=== PATIENT | male | born 1955 | race Caucasian/White ===

== ENCOUNTER 2016-12-20 19:35 | Emergency (ER) | payer BC ==
[2016-12-20 20:06] VITALS: BP 126/75
--- NOTE | 2016-12-20 20:39 | UC ---
FLU HPI - HPI Summary HPI Summary: complaint of nasal congestion and cough that started yesterday low grade fever sore throat for several hours yesterday feels body aches pain in joints and muscles exhausted taking tylenol and aspirin with some relief - History of Current Complaint Chief Complaint: UCRespiratory Stated Complaint: FLU LIKE SYMPTOMS Time Seen by Provider: 12/20/16 20:33 Hx Obtained From: Patient - Allergy/Home Medications Allergies/Adverse Reactions: Allergies Allergy/AdvReac Type Severity Reaction Status Date / Time Clarithromycin [From Biaxin] Allergy Severe vomiting Verified 12/20/16 19:59 and dizziness Sulfa Drugs Allergy Severe Vomiting Verified 12/20/16 19:59 and dizziness Sulfamethoxazole Allergy Severe Vomiting, Verified 12/20/16 19:59 w/Trimethoprim dizziness [From Septra] Home Medications: Home Medications Aspirin EC Low Dose* [Ecotrin EC Low Dose 81 MG*] 1 tab DAILY 12/20/16 [History Confirmed 12/20/16] Hydrochlorothiazide TAB* [Hydrodiuril TAB*] 12.5 mg DAILY 12/20/16 [History Confirmed 12/20/16] Metoprolol Tartrate TAB* [Lopressor TAB*] 1 tab BID 12/20/16 [History Confirmed 12/20/16] PMH/Surg Hx/FS Hx/Imm Hx Previously Healthy: Yes Cardiovascular History Of: Reports: Cardiac Disorders - heart murmur, Hypertension Respiratory History Of: Reports: Asthma - Surgical History Surgical History: Yes Surgery Procedure, Year, and Place: RIGHT rotator cuff Sep 2016 - Family History Known Family History: Negative: Cardiac Disease, Hypertension, Diabetes - Social History Occupation: Employed Full-time Lives: With Family Alcohol Use: Daily Substance Use Type: None Smoking Status (MU): Never Smoked Tobacco - Immunization History Most Recent Influenza Vaccination: 2016 Most Recent Tetanus Shot: UTD Review of Systems Constitutional: Fever, Fatigue Skin: Negative Eyes: Negative ENT: Nasal Discharge Respiratory: Cough Cardiovascular: Negative Gastrointestinal: Negative Genitourinary: Negative Motor: Negative Neurovascular: Negative Musculoskeletal: Myalgia Neurological: Negative Psychological: Negative All Other Systems Reviewed And Are Negative: Yes Physical Exam Triage Information Reviewed: Yes Appearance: No Pain Distress, Well-Nourished Vital Signs: Initial Vital Signs Temp 98.4 F 12/20/16 20:02 Pulse 66 12/20/16 20:02 Resp 18 12/20/16 20:02 BP 126/75 12/20/16 20:02 Pulse Ox 98 12/20/16 20:02 Vital Signs Reviewed: Yes Eyes: Positive: Conjunctiva Clear ENT: Positive: Pharyngeal erythema, Nasal congestion, Nasal drainage, TMs normal. Negative: Tonsillar swelling, Tonsillar exudate Neck: Positive: No Lymphadenopathy Respiratory: Positive: Lungs clear, Normal breath sounds, No respiratory distress Cardiovascular: Positive: RRR, No Murmur, Pulses Normal Abdomen Description: Positive: Nontender, Soft Bowel Sounds: Positive: Present Neurological: Positive: Alert Psychological Exam: Normal Skin Exam: Normal Flu Course/Dx - Differential Dx/Diagnosis Differential Diagnosis/HQI/PQRI: Influenza, Upper Respiratory Infection Provider Diagnoses: influenza like illness Discharge - Discharge Plan Condition: Stable Disposition: HOME Patient Education Materials: Influenza (ED) Referrals: Elly CAMP,Luisito Lizarraga [Medical Doctor] - Additional Instructions: You have an influenza like illness Increase fluids and rest Take acetaminophen or ibuprofen for fever or pain Please review your discharge instructions. If your symptoms do not improve please call your primary care provider or return to urgent care
== END 2016-12-20 21:04 | disposition home or self-care (01) ==
LOC: UCCORT 19:35
DX: J11.1 Influenza due to unidentified influenza virus with other respiratory manifestations (principal); Z88.1 Allergy status to other antibiotic agents; Z88.2 Allergy status to sulfonamides; I10 Essential (primary) hypertension; Z79.82 Long term (current) use of aspirin
CPT/HCPCS: 87502; 99201; G0463

== ENCOUNTER 2017-12-04 07:07 | Emergency (ER) | payer BC ==
[2017-12-04 07:23] VITALS: BP 136/76
--- NOTE | 2017-12-04 07:44 | UC ---
Throat Pain/Nasal Kristopher HPI - HPI Summary HPI Summary: 4 days of congestion and sore throat. Low grade fevers. No significant myalgias or chills. There is sinus pressure. - History of Current Complaint Chief Complaint: UCRespiratory Stated Complaint: SINUSES,SORE THROAT Time Seen by Provider: 12/04/17 07:30 Hx Obtained From: Patient Onset/Duration: Gradual Onset, Lasting Days Severity: Moderate Pain Intensity: 7 Cough: Productive Associated Signs & Symptoms: Positive: Dysphagia, Sinus Discomfort, Fever. Negative: Rash - Allergies/Home Medications Allergies/Adverse Reactions: Allergies Allergy/AdvReac Type Severity Reaction Status Date / Time clarithromycin [From Biaxin] Allergy Vomiting Verified 12/04/17 07:17 Sulfa (Sulfonamide Allergy Vomiting Verified 12/04/17 07:17 Antibiotics) sulfamethoxazole Allergy Vomiting Verified 12/04/17 07:17 [From Bactrim] trimethoprim [From Bactrim] Allergy Vomiting Verified 12/04/17 07:17 PMH/Surg Hx/FS Hx/Imm Hx Previously Healthy: No - prior smoker. prior sinusitis last one 1.5 years ago. - Surgical History Surgical History: Yes Surgery Procedure, Year, and Place: RIGHT rotator cuff Sep 2016 - Family History Known Family History: Negative: Cardiac Disease, Hypertension, Diabetes - Social History Alcohol Use: Daily Alcohol Amount: 2 glasses wine Substance Use Type: None Smoking Status (MU): Former Smoker When Did the Patient Quit Smoking/Using Tobacco: 2006 - Immunization History Most Recent Influenza Vaccination: 2015 Most Recent Tetanus Shot: UTD Review of Systems ENT: Sore Throat, Sinus Congestion Respiratory: Cough All Other Systems Reviewed And Are Negative: Yes Physical Exam Triage Information Reviewed: Yes Appearance: Well-Appearing, No Pain Distress, Well-Nourished Vital Signs: Initial Vital Signs Temp 99.6 F 12/04/17 07:18 Pulse 68 12/04/17 07:18 Resp 18 12/04/17 07:18 BP 136/76 12/04/17 07:18 Pulse Ox 98 12/04/17 07:18 Vital Signs Reviewed: Yes Eyes: Positive: Conjunctiva Clear ENT: Positive: Pharyngeal erythema, Nasal congestion, TMs normal, Uvula midline. Negative: Nasal drainage, TM bulging, TM dull, TM red, Tonsillar swelling, Tonsillar exudate, Trismus, Muffled voice, Sinus tenderness Neck: Positive: Supple, Nontender, No Lymphadenopathy Respiratory: Positive: Lungs clear, Normal breath sounds, No respiratory distress, No accessory muscle use. Negative: Respiratory distress, Decreased breath sounds, Accessory muscle use, Crackles, Rhonchi, Stridor, Wheezing Cardiovascular: Positive: RRR, No Murmur, Pulses Normal Abdomen Description: Positive: Nontender, No Organomegaly, Soft. Negative: Distended, Guarding Musculoskeletal: Positive: Strength Intact, ROM Intact, No Edema Neurological: Positive: Alert, Muscle Tone Normal. Negative: Fatigued Psychological: Positive: Age Appropriate Behavior Skin: Negative: rashes Throat Pain/Nasal Course/Dx - Differential Dx/Diagnosis Provider Diagnoses: uri Discharge - Discharge Plan Condition: Good Disposition: HOME Prescriptions: Amoxicillin PO (*) [Amoxicillin 500 MG CAP*] 500 mg PO TID #30 cap Patient Education Materials: Upper Respiratory Infection (ED) Referrals: Saji Aguilar MD [Primary Care Provider] - Additional Instructions: Decongestants, nasal irrigation, if not better in 4 days or so start amoxacillin.
== END 2017-12-04 07:46 | disposition home or self-care (01) ==
LOC: UCCORT 07:07
DX: J06.9 Acute upper respiratory infection, unspecified (principal); Z88.1 Allergy status to other antibiotic agents; Z88.2 Allergy status to sulfonamides; Z87.891 Personal history of nicotine dependence
CPT/HCPCS: 99212; G0463